=== PATIENT | female | born 1990 | race Caucasian/White ===

== ENCOUNTER 2023-07-05 17:13 | Emergency (ER) | payer OTHER, SELFPAY ==
[2023-07-05 17:35] VITALS: BP 137/76
[2023-07-05 17:59] LABS: % Basophils 0.5 % (0-2); % Eosinophils 1.3 % (0-6); % Immature Granulocytes 0.2 % (0-0.5); % Monocytes 6.2 % (1.7-9.3); % Neutrophils 66.8 % (42.2-75.2); Absolute Eosinophils 0.1 10^3/uL (0-0.7); Absolute Lymphocytes 2.1 10^3/uL (1.2-3.4); Absolute Monocytes 0.5 10^3/uL (0.1-0.6); Absolute Neutrophils 5.6 10^3/uL (1.4-6.5); Hematocrit 39.3 % (37.0-47.0); Hemoglobin 12.5 g/dL (12.0-16.0); Mean Corp Hgb Conc. 31.8 g/dL (33.0-37.0); Mean Corpuscular Hgb 26.8 pg (27.0-31.0); Mean Corpuscular Volume 84.3 fL (81.0-99.0); Mean Platelet Volume 10.1 fL (7.4-10.4); Nucleated Red Blood Cells % 0 %; Platelet Count 267 10^3/uL (130-400); Red Blood Cell Count 4.66 10^6/uL (4.20-5.40); Red Cell Dist. Width 14.7 % (11.5-14.5); White Blood Cell Count 8.3 10^3/uL (4.8-10.8)
[2023-07-05 18:19] LABS: ALT (SGPT) 29 U/L (0-35); AST (SGOT) 26 U/L (14-36); Albumin 4.4 g/dl (3.5-5.0); Alkaline Phosphatase 74 U/L (38-126); Blood Urea Nitrogen 18 mg/dl (7-17); Carbon Dioxide 25 mmol/L (22-30); Chloride 107 mmol/L (98-107); Glucose 55 mg/dl (70-99); Potassium 4.1 mmol/L (3.5-5.1); Sodium 139 mmol/L (135-145); Total Bilirubin 0.7 mg/dl (0.2-1.3); Total Protein 7.6 g/dl (6.3-8.2); eGFR > 60.00
[2023-07-05 18:23] LABS: Troponin I < 0.012 ng/ml
[2023-07-05 18:45] LABS: Glucose - Point of Care 109 mg/dl (70-99)
== END 2023-07-05 19:00 | disposition left against medical advice (07) ==
LOC: EMR 17:13
PROVIDERS: EMERGENCY PHYSICIAN Emergency Medicine
DX: R51.9 Headache, unspecified (principal); R20.2 Paresthesia of skin; R07.89 Other chest pain; Z53.29 Procedure and treatment not carried out because of patient's decision for other reasons
CPT/HCPCS: 80053; 82962; 84484; 85025; 93005

== ENCOUNTER 2023-09-19 16:20 | Emergency (ER) | payer OTHER, SELFPAY ==
[2023-09-19 16:27] VITALS: BP 124/79
[2023-09-19 16:48] LABS: % Basophils 0.6 % (0-2); % Eosinophils 1.3 % (0-6); % Immature Granulocytes 0.2 % (0-0.5); % Lymphocytes 25.1 % (20.5-51.1); % Monocytes 4.5 % (1.7-9.3); % Neutrophils 68.3 % (42.2-75.2); Absolute Basophils 0.1 10^3/uL (0-0.2); Absolute Eosinophils 0.1 10^3/uL (0-0.7); Absolute Lymphocytes 2.2 10^3/uL (1.2-3.4); Absolute Monocytes 0.4 10^3/uL (0.1-0.6); Absolute Neutrophils 5.9 10^3/uL (1.4-6.5); Hematocrit 39.2 % (37.0-47.0); Hemoglobin 12.6 g/dL (12.0-16.0); Mean Corp Hgb Conc. 32.1 g/dL (33.0-37.0); Mean Corpuscular Hgb 27.5 pg (27.0-31.0); Mean Corpuscular Volume 85.6 fL (81.0-99.0); Mean Platelet Volume 10.2 fL (7.4-10.4); Nucleated Red Blood Cells % 0 %; Platelet Count 250 10^3/uL (130-400); Red Blood Cell Count 4.58 10^6/uL (4.20-5.40); Red Cell Dist. Width 14.8 % (11.5-14.5); White Blood Cell Count 8.7 10^3/uL (4.8-10.8)
[2023-09-19 16:53] LABS: INR 1.08
[2023-09-19 16:54] LABS: APTT 29.6 Sec (23.4-35.0)
[2023-09-19 16:58] LABS: ALT (SGPT) 31 U/L (0-35); AST (SGOT) 32 U/L (14-36); Albumin 4.1 g/dl (3.5-5.0); Alkaline Phosphatase 72 U/L (38-126); Blood Urea Nitrogen 13 mg/dl (7-17); Calcium 9.1 mg/dl (8.4-10.2); Carbon Dioxide 21 mmol/L (22-30); Chloride 109 mmol/L (98-107); Glucose 104 mg/dl (70-99); Potassium 4.1 mmol/L (3.5-5.1); Sodium 139 mmol/L (135-145); Total Bilirubin 0.5 mg/dl (0.2-1.3); Total Protein 7.1 g/dl (6.3-8.2); eGFR > 60.00
[2023-09-19 17:10] LABS: Troponin I < 0.012 ng/ml
[2023-09-19 18:28] VITALS: BP 125/66
[2023-09-19 18:30] VITALS: BMI 41.4
--- NOTE | 2023-09-19 18:56 | ED.GENMED ---
History of Present Illness
General
Chief Complaint: Chest Pain
Source: patient
Exam Limitations: none
Time Seen by Provider: 09/19/23 18:24
Nursing documentation reviewed up to this point in time: agreed with
Travel History
Have you had any contact with someone who has COVID-19?: No
Do you have any symptoms of coronavirus? Fever > 100 degrees, chills, cough, shortness of breath, sore throat, loss of taste or smell, muscle aches, or headache?: No
History of Present Illness
History of Present Illness:
The patient is a pleasant 33-year-old female who comes in with complaints of chest pain or shortness of breath that started last night. Patient reports that when this chest pain started, she also developed a headache. Patient describes it as a
moderate headache across the front of her head. She denies nausea, vomiting, rash, fevers and chills. She denies any recent illnesses. She reports she has had a mild cough but denies wheezing and any history of asthma. Patient reports she is
concerned because she has a history of pulmonary embolism after her several months ago. She was recently taken off Eliquis. She denies leg pain and leg swelling.
Past History
Past History
ED Past Medical History: Other (Pulmonary embolism)
ED Past Surgical History:
Social History
Tobacco: Non-smoker
Alcohol: None
Personal: Single
Living: with family
Employment: Other
Family History
Family History: Other
Review of Systems
Review of Systems
Allergies reviewed?: Yes
All Other Systems: ROS reviewed and negative except as documented in HPI and ROS
Constitutional: Reports no symptoms
EENT: Reports no symptoms
Respiratory: Reports trouble breathing
Cardiac: Reports chest pain
ABD/GI: Reports no symptoms
: Reports no symptoms
Musculoskeletal: Reports no symptoms
Skin: Reports no symptoms
Neurological: Reports headache
Hematologic/Lymphatic: Reports no symptoms
Psychiatric: Reports no symptoms
Phy Exam
Physical Exam
Physical Exam:
Physical Exam
General: no apparent distress, not acutely ill. Well and comfortable appearing
Neck: supple. no meningeal signs. normal psoterior pharynx
Heart: s1/s2 regular rate and rhythm, no murmur. equal radial pulses.
Lungs: no acute respiratory distress. clear bilaterally
Abdomen: normal bowel sounds. not tender. no CVAT
Neuro: alert and oriented. no focal neurological deficits
Skin: no rash
Psychiatric: well kept. interactive and cooperative
Extremities: no edema. no calf tenderness. negative homans. good distal pulses
Scores
Heart Score for Chest Pain Patients
STEMI patient?: Not applicable
Course
Orders/Labs/Results
Orders:
Orders
09/19/23 16:29
Electrocardiogram (*1) Urgent
Reason for Study: Chest Pain
EKG- Treatment ONCE
09/19/23 16:36
Complete Blood Count/With Diff Urgent
Comprehensive Metabolic Panel Urgent
HCG, Serum Qualitative Screen Urgent
Comment: ADD ON
Protime/PTT Urgent
Troponin I Urgent
09/19/23 18:52
CT Chest Pe Study Urgent
Comment:
Reason For Exam: CP
0.9% Sodium Chloride 1000 ml [Nss] 1,000 ml IV BOLUS
Ketorolac [Toradol] 30 mg IV NOW STA
09/19/23 18:54
Add On- LAB Urgent
Tests Added?: serum HCG qualitative
Abnormal Lab Results
09/19/23
16:36
MCHC 32.1 L g/dL
(33.0-37.0)
RDW 14.8 H %
(11.5-14.5)
Chloride 109 H mmol/L
(98-107)
Carbon Dioxide 21 L mmol/L
(22-30)
Glucose 104 H mg/dl
(70-99)
09/19/23 16:36
09/19/23 16:36
Vital Signs
Initial and Last Documented VS:
Initial Vital Signs
Temp Pulse Resp BP Pulse Ox
98.2 F 80 18 124/79 100
09/19/23 16:27 09/19/23 16:27 09/19/23 16:27 09/19/23 16:27 09/19/23 16:27
Last Documented Vital Signs
Temp Pulse Resp BP Pulse Ox
98.2 F 65 16 107/72 98
09/19/23 16:27 09/19/23 21:31 09/19/23 21:31 09/19/23 21:31 09/19/23 21:31
MDM/Problems Addressed
Differential Diagnosis Includes:
Gastritis, PE, pneumonia
MDM/Problems Addressed:
Patient presents with acute chest pain
Chronic conditions affecting care:
History of pulmonary embolism
*Radiology
Radiology exam reviewed: radiology read reviewed
*EKG
Interpreted by ED Provider?: Yes
Interpretation: abnormal
Comparison EKG: no comparison EKG present
Rate: normal
Rhythm: sinus
[place]: normal axis
Interval: normal interval
QRS Pattern: normal QRS
Ischemia: non-specific ST changes
*Medical Physicist Interpretation
Rate: normal
Interpretation: normal
Rhythm: sinus
*Critical Care Note
Total Time (30-74mins, 75-104mins- exclusive of procedures): Not Applicable
Data Reviewed
Review of Other/Old Records Reveals: Radiology Studies (CT chest reviewed from March 2023 which showed no evidence of PE)
Source: patient
ED Attending Note
-
Portions of this chart may have been created with voice recognition software.� Occasional wrong word or��sound alike� substitutions may have occurred due to the inherent limitations of voice recognition software.
Discharge Plan
Departure
Patient Disposition: Home (Routine Discharge)
Date of Disposition: 09/19/23
Time of Disposition: 20:43
Patient with high blood pressure during this ER visit?: No
Condition: Good
Covid-19: Not Applicable
Discharge Problem:
Chest pain in adult
Instructions: Chest Pain PCP Follow Up
Prescriptions:
No Action
Eliquis 5 mg tablet
5 mg PO BID 30 Days Qty: 70 0RF
Rx Instructions:
Take 2 tablets (10mg) twice a day for the first 7 days
Take 1 tablet (5mg) twice a day after that
Referrals:
PRIVATE,PHYSICIAN [Family Provider] -
Interventions
Interventions:
*Risk Screen - Suicide Last Done: 09/19/23 16:27
*General Assessment Last Done: 09/19/23 16:27
*Neglect/Abuse Screening Last Done: 09/19/23 16:27
ED- Fall Risk Assessment Last Done: 09/19/23 18:23
*ED COVID-19 Vaccine History Last Done: 09/19/23 16:27
*Nursing Disposition Last Done: 09/19/23 21:39
ED- Cardiac Assessment Last Done: 09/19/23 18:23
Discharge Date and Time
Discharge Date/Time: 09/19/23 21:39
Print Language: SENEGALESE
[2023-09-19 19:00] VITALS: BP 141/96
[2023-09-19] MEDS: NSS 1000 IV (19:22)
[2023-09-19] MEDS: TORADOL 30 MG IV (19:23)
[2023-09-19 19:24] LABS: HCG, Serum Qualitative Screen Negative
[2023-09-19 21:31] VITALS: BP 107/72
== END 2023-09-19 21:39 | disposition home or self-care (01) ==
LOC: EMR 16:20
PROVIDERS: Emergency Medicine; EMERGENCY PHYSICIAN Emergency Medicine
DX: R07.9 Chest pain, unspecified (principal); R06.02 Shortness of breath; R51.9 Headache, unspecified; Z86.711 Personal history of pulmonary embolism
CPT/HCPCS: 99285; 96374; 96361 ×2; 71275; 80053; 84484; 84703; 85025; 85610; 85730; 93005; Q9967

== ENCOUNTER 2024-01-27 17:58 | Emergency (ER) | payer OTHER, SELFPAY ==
[2024-01-27 18:00] VITALS: BP 135/83
--- NOTE | 2024-01-27 19:24 | ED.GENMED ---
History of Present Illness
General
Chief Complaint: Headache
Source: patient
Exam Limitations: none
Time Seen by Provider: 01/27/24 18:55
Nursing documentation reviewed up to this point in time: agreed with
History of Present Illness
History of Present Illness:
34-year-old female presents to the ER for evaluation. She reports she started headache on 4 days ago. She went to her family doctor that time and was put on Fioricet however this was not relieving her symptoms. She started yesterday with
numbness and tingling in her right arm and right-sided neck pain. She denies any recent trauma denies any recent chiropractor manipulation. Denies any blurry vision. She denies any nausea vomiting. She typically does not get headaches. She does
have history of PE from in 01/2023 and took anticoagulation for 9 months but is no longer on anticoagulation.
Past History
Past History
ED Past Medical History: Other (Pulmonary embolism)
ED Past Surgical History:
Social History
Tobacco: Non-smoker
Alcohol: None
Personal: Single
Living: with family
Employment: Other
Family History
Family History: Other
Review of Systems
Review of Systems
Allergies reviewed?: Yes
All Other Systems: ROS reviewed and negative except as documented in HPI and ROS
Constitutional: Reports no symptoms
Respiratory: Reports no symptoms
Cardiac: Reports no symptoms
ABD/GI: Reports no symptoms; Denies nausea or vomiting
: Reports no symptoms
Musculoskeletal: Reports neck pain (right sided)
Skin: Reports no symptoms
Neurological: Reports headache and numbness (Patient complains of numbness and tingling to right arm ); Denies dizzy
Psychiatric: Reports no symptoms
Phy Exam
General Physical Exam
General Presentation: no apparent distress
General age: appears stated age
General Skin: warm and dry
General Habitus: obese
General Mental: alert
General Hydration: appears well hydrated
ENT Exam
ENT Exam: EOMI and neck supple
Eye Exam
Eye Exam: PERRL and EOMI
Eye Exam General: PERRL: bilateral and EOM intact: bilateral
Pupil Exam: Bilateral: round and reactive
Neurological Exam
Neurological Exam: alert, oriented x3, no motor deficits, no sensory deficits and other (Intact strength and sensation to bilateral upper lower extremities)
[place] Coma Scale
Eye Opening: Spontaneous
Verbal Response: Oriented
Motor Response: Obeys Commands
GCS Total Score: 15
Musculoskeletal Exam
Musculoskeletal Exam: full ROM and other (Full range of motion to neck nontender throughout)
Skin Exam
Skin Exam: normal color and warm/dry
Psychiatric Exam
Psychiatric Exam: normal mood/affect
Course
Orders/Labs/Results
Orders:
Orders
01/27/24 19:22
CT Head & Neck Angio W/wo IV Urgent
Comment:
Reason For Exam: headache /neck pain/paresthesias
01/27/24 19:23
IV Insert/Care/Rem.- Treatment PRN
0.9% Sodium Chloride 1000 ml [Nss] 1,000 ml IV BOLUS
Metoclopramide [Reglan] 10 mg IV NOW STA
01/27/24 19:24
Diphenhydramine [Benadryl] 25 mg IV NOW STA
01/27/24 19:35
Complete Blood Count/With Diff Urgent
Comprehensive Metabolic Panel Urgent
HCG, Serum Qualitative Screen Urgent
Comment: ADD ON
01/27/24 20:08
Add On- LAB Urgent
Tests Added?: serum qualitative hcg
Abnormal Lab Results
01/27/24
19:35
MCHC 32.8 L g/dL
(33.0-37.0)
01/27/24 19:35
01/27/24 19:35
Vital Signs
Initial and Last Documented VS:
Initial Vital Signs
Temp Pulse Resp BP Pulse Ox
97.6 F 95 18 135/83 99
01/27/24 18:00 01/27/24 18:00 01/27/24 18:00 01/27/24 18:00 01/27/24 18:00
Last Documented Vital Signs
Temp Pulse Resp BP Pulse Ox
97.6 F 95 18 135/83 99
01/27/24 18:00 01/27/24 18:00 01/27/24 18:00 01/27/24 18:00 01/27/24 18:00
Toys Inspector consulted with Physician
Toys Inspector consulted with physician?: Yes
Name of Physician Consulted: celia
MDM/Problems Addressed
Differential Diagnosis Includes:
Not limited to headache, migraine, less likely intracranial hemorrhage is likely dissection less likely meningitis
MDM/Problems Addressed:
Patient is a 34-year-old female who does not typically get headaches presents with headache for the past 4 days and started with numbness in her right arm yesterday with neck pain not associate with trauma chiropractor ablation or any other injury.
This headache is not relieved with Fioricet prescribed her family doctor on . She is in no acute distress and has a normal neurologic exam here in the ER. Exam not consistent with meningitis no recent fever chills no recent viral
complaints. No meningismus. Case reviewed ED physician will order CT head and neck angio to rule out dissection. Will treat with fluids/reglan /benadryl
On reexam patient's headache is gone she is nontoxic. CAT scan/CT head neck CTA completely normal. Patient is very well-appearing remains within normal neurological exam. Stable for discharge home with outpatient follow-up.
*Critical Care Note
Total Time (30-74mins, 75-104mins- exclusive of procedures): Not Applicable
ED Attending Note
-
Portions of this chart may have been created with voice recognition software.� Occasional wrong word or��sound alike� substitutions may have occurred due to the inherent limitations of voice recognition software.
Discharge Plan
Departure
Patient Disposition: Home (Routine Discharge)
Date of Disposition: 01/27/24
Time of Disposition: 22:25
Patient with high blood pressure during this ER visit?: Yes
Condition: Fair
Covid-19: Not Applicable
Discharge Problem:
Headache, paresthesias
Instructions: Headache, Adult (DC), Paresthesia (DC), BLOOD PRESSURE
Prescriptions:
No Action
Eliquis 5 mg tablet
5 mg PO BID 30 Days Qty: 70 0RF
Rx Instructions:
Take 2 tablets (10mg) twice a day for the first 7 days
Take 1 tablet (5mg) twice a day after that
Referrals:
Tone Martins DO [Family Provider] -
Activity Restrictions/Additional Instructions:
As discussed your CAT scans were negative. Follow-up closely with your family doctor for reevaluation
return if any worsening of symptoms.
Interventions
Interventions:
*Risk Screen - Suicide Last Done: 01/27/24 18:00
*General Assessment Last Done: 01/27/24 18:00
*Neglect/Abuse Screening Last Done: 01/27/24 18:00
*ED COVID-19 Vaccine History Last Done: 01/27/24 18:00
ED- Neurological Assessment Last Done: 01/27/24 18:54
Discharge Date and Time
Print Language: GEORGI[place]
[2024-01-27] MEDS: NSS 1000 IV (19:40)
[2024-01-27] MEDS: REGLAN 10 MG IV (19:41)
[2024-01-27] MEDS: BENADRYL 25 MG IV (19:41)
[2024-01-27 19:43] LABS: % Basophils 0.6 % (0-2); % Eosinophils 1.4 % (0-6); % Immature Granulocytes 0.2 % (0-0.5); % Lymphocytes 29.8 % (20.5-51.1); Absolute Basophils 0.1 10^3/uL (0-0.2); Absolute Eosinophils 0.1 10^3/uL (0-0.7); Absolute Lymphocytes 2.5 10^3/uL (1.2-3.4); Absolute Monocytes 0.5 10^3/uL (0.1-0.6); Absolute Neutrophils 5.2 10^3/uL (1.4-6.5); Hematocrit 37.8 % (37.0-47.0); Hemoglobin 12.4 g/dL (12.0-16.0); Mean Corp Hgb Conc. 32.8 g/dL (33.0-37.0); Mean Corpuscular Hgb 28.2 pg (27.0-31.0); Mean Corpuscular Volume 85.9 fL (81.0-99.0); Mean Platelet Volume 9.9 fL (7.4-10.4); Nucleated Red Blood Cells % 0 %; Platelet Count 217 10^3/uL (130-400); White Blood Cell Count 8.4 10^3/uL (4.8-10.8)
[2024-01-27 20:03] LABS: ALT (SGPT) 24 U/L (0-35); AST (SGOT) 26 U/L (14-36); Albumin 4.2 g/dl (3.5-5.0); Alkaline Phosphatase 75 U/L (38-126); Blood Urea Nitrogen 13 mg/dl (7-17); Carbon Dioxide 23 mmol/L (22-30); Chloride 107 mmol/L (98-107); Glucose 87 mg/dl (70-99); Potassium 4.4 mmol/L (3.5-5.1); Sodium 142 mmol/L (135-145); Total Bilirubin 0.4 mg/dl (0.2-1.3); eGFR > 60.00
[2024-01-27 20:29] LABS: HCG, Serum Qualitative Screen Negative
[2024-01-27 22:39] VITALS: BP 125/77
== END 2024-01-27 22:55 | disposition home or self-care (01) ==
LOC: EMR 17:58
PROVIDERS: Nurse Practitioner; EMERGENCY PHYSICIAN Emergency Medicine; FAMILY PHYSICIAN Family Medicine
DX: R51.9 Headache, unspecified (principal); R20.2 Paresthesia of skin; R03.0 Elevated blood-pressure reading, without diagnosis of hypertension
CPT/HCPCS: 99285; 96374; 96375; 96361; 70496; 70498; 80053; 84703; 85025; Q9967

== ENCOUNTER → 2024-06-10 11:31 | Outpatient (REF) | payer OTHER, SELFPAY | LOC: HWRAD 11:31 | PROVIDERS: ATTENDING PHYSICIAN Nurse Practitioner Family | DX: R10.9 Unspecified abdominal pain (principal) | CPT/HCPCS: 76700 ==

== ENCOUNTER → 2024-08-20 10:11 | Outpatient (REF) | payer OTHER, SELFPAY | LOC: RAD 10:11 | PROVIDERS: ATTENDING PHYSICIAN Nurse Practitioner Family | DX: M79.605 Pain in left leg (principal) | CPT/HCPCS: 93971 ==